=== PATIENT | male | born 2000 | race Caucasian/White ===

== ENCOUNTER 2020-05-11 00:22 | Observation (INO) ==
[2020-05-11 01:34] LABS: VBG HCO3 28 mEq/L (21-27); VBG PCO2 50 mmHg (41-51); VBG PH 7.35 pH Units (7.32-7.42); VBG PO2 41 mmHg (25-50)
[2020-05-11 01:36] LABS: Bacteria,Urine Few per hpf (None-Few); Bilirubin,Urine Negative (Negative); Blood,Urine Negative (Negative); Clarity,Urine Clear (Clear); Color,Urine Yellow (Yellow); Glucose,Urine (UA) Normal (Normal); Ketones,Urine Negative (Negative); Leukocyte Esterase,Urine Negative (Negative); Mucus,Urine Few per lpf (None-Few); Nitrite,Urine Negative (Negative); Protein,Urine 30 mg/dL (Neg-Trace); RBC,Urine 0-3 per hpf (0-3); Specific Gravity,Urine > 1.030 (1.010-1.025); WBC,Urine 0-3 per hpf (0-3)
[2020-05-11 01:40] LABS: Basophils % 0.4 %; Eosinophils # 0.1 K/mcL (0.0-0.6); Eosinophils % 0.7 %; Hematocrit 46.1 % (37.5-50.1); Hemoglobin 15.4 g/dL (12.9-16.9); Immature Granulocytes % 0.3 % (0-4); Lymphocytes # 1.9 K/mcL (0.6-4.6); Lymphocytes % 25.8 %; Mean Corpuscular HGB Conc 33.4 g/dL (31.6-35.5); Mean Corpuscular Hemoglobin 28.9 pg (28.0-33.3); Mean Corpuscular Volume 86.5 fL (83.0-100.0); Mean Platelet Volume 9.9 fL (9.4-12.4); Monocytes # 0.8 K/mcL (0.0-1.3); Monocytes % 11.4 %; Neutrophils # 4.5 K/mcL (1.6-8.9); Platelet Count 189 K/mcL (140-400); Red Blood Count 5.33 M/mcL (4.19-5.50); Red Cell Distribution Width 12.4 % (11.5-14.5); Segmented Neutrophils % 61.4 %; White Blood Count 7.3 K/mcL (4.3-11.1)
[2020-05-11] MEDS ORDERED: Metoclopramide 10 MG/2 ML VIAL IVP ONE (01:48)
[2020-05-11] MEDS ORDERED: Isovue-370 500 ML BOTTLE IVP ONE (01:48)
[2020-05-11] MEDS ORDERED: 0.9 % Sodium Chloride 1,000 ML IVC ONE (01:48)
[2020-05-11] MEDS ORDERED: Famotidine 20 MG/2 ML VIAL IVP ONE (01:50)
[2020-05-11 01:59] LABS: Alanine Aminotransferase 15 Units/L (7-52); Albumin 4.3 g/dL (3.5-5.7); Albumin/Globulin Ratio 1.3 (1.1-2.2); Alkaline Phosphatase 47 Units/L (34-104); Aspartate Amino Transferase 13 Units/L (13-39); BUN/Creatinine Ratio 14 (6-26); Bilirubin,Total 1.1 mg/dL (0.3-1.0); Blood Urea Nitrogen 16 mg/dL (6-20); Calcium 9.2 mg/dL (8.6-10.3); Carbon Dioxide 25 mEq/L (23-29); Chloride 102 mEq/L (98-107); Globulin 3.2 g/dL (2.4-3.5); Glucose 93 mg/dL (70-105); Osmolality,Calculated 289 (280-300); Potassium 3.6 mEq/L (3.5-5.1); Sodium 139 mEq/L (136-145); Total Protein 7.5 g/dL (6.4-8.9); Troponin I < 0.03 ng/mL (< 0.04); eGFR For African Americans > 60 (> 60); eGFR For Non-African Americans > 60 (> 60)
[2020-05-11 02:11] LABS: Bilirubin,Direct 0.3 mg/dL (0.0-0.2); Bilirubin,Indirect 0.8 mg/dL (0.0-1.0); Lipase 11 Units/L (11-82)
[2020-05-11 02:13] LABS: Thyroid Stimulating Hormone 3.601 mcIU/mL (0.340-5.600)
[2020-05-11 06:29] LABS: Adenovirus Not Detected (Not Detect); Coronavirus 229E Not Detected (Not Detect); Coronavirus HKU1 Not Detected (Not Detect); Coronavirus NL63 Not Detected (Not Detect); Coronavirus OC43 Not Detected (Not Detect)
[2020-05-11 06:30] LABS: Bordetella Pertussis Not Detected (Not Detect); Chlamydophila pneumoniae Not Detected (Not Detect); Human Metapneumovirus Not Detected (Not Detect); Human Rhinovirus/Enterovirus Not Detected (Not Detect); Influenza A Subtype 2009 H1 Not Detected (Not Detect); Influenza B Not Detected (Not Detect); Mycoplasma pneumoniae Not Detected (Not Detect); Parainfluenza Virus 1 Not Detected (Not Detect); Parainfluenza Virus 2 Not Detected (Not Detect); Parainfluenza Virus 3 Not Detected (Not Detect); Parainfluenza Virus 4 Not Detected (Not Detect); Respiratory Syncytial Virus Not Detected (Not Detect)
[2020-05-11] MEDS ORDERED: Naloxone 0.4 MG/ML INJ IVP PRN (08:02)
[2020-05-11] MEDS ORDERED: *HR* Promethazine 25 MG/ML VIAL IVP PRN (08:03)
[2020-05-11] MEDS: Ringers Solution, Lactated 1,000 ML IVC SCH ×2 (08:59→17:57)
[2020-05-11] MEDS: MetroNIDAZOLE 500 MG/100 ML 500 MG/100 ML BAG IVPB SCH (18:03)
[2020-05-11] MEDS: *HR* Heparin 5,000 UNIT/ML VIAL SQ SCH (18:04)
[2020-05-11] MEDS ORDERED: Acetaminophen IV 1,000 MG/100 ML INFUS..BTL IVPB ONE (23:23)
[2020-05-11] MEDS ORDERED: Ketorolac 15 MG/ML VIAL IVP PRN (23:24)
[2020-05-12] MEDS: MetroNIDAZOLE 500 MG/100 ML 500 MG/100 ML BAG IVPB SCH ×2 (00:05→07:25)
[2020-05-12 02:56] LABS: Basophils % 0.5 %; Eosinophils # 0.1 K/mcL (0.0-0.6); Eosinophils % 2.2 %; Hematocrit 41.1 % (37.5-50.1); Immature Granulocytes % 0.2 % (0-4); Lymphocytes # 1.9 K/mcL (0.6-4.6); Lymphocytes % 34.4 %; Mean Corpuscular HGB Conc 32.8 g/dL (31.6-35.5); Mean Corpuscular Hemoglobin 28.4 pg (28.0-33.3); Mean Corpuscular Volume 86.3 fL (83.0-100.0); Mean Platelet Volume 9.6 fL (9.4-12.4); Monocytes # 0.5 K/mcL (0.0-1.3); Monocytes % 9.3 %; Neutrophils # 2.9 K/mcL (1.6-8.9); Platelet Count 155 K/mcL (140-400); Red Blood Count 4.76 M/mcL (4.19-5.50); Red Cell Distribution Width 12.1 % (11.5-14.5); Segmented Neutrophils % 53.4 %; White Blood Count 5.5 K/mcL (4.3-11.1)
[2020-05-12 03:13] LABS: Hemoglobin 13.5 g/dL (12.9-16.9)
[2020-05-12 03:15] LABS: BUN/Creatinine Ratio 13 (6-26); Blood Urea Nitrogen 14 mg/dL (6-20); Calcium 8.6 mg/dL (8.6-10.3); Carbon Dioxide 26 mEq/L (23-29); Chloride 106 mEq/L (98-107); Glucose 90 mg/dL (70-105); Osmolality,Calculated 288 (280-300); Potassium 3.8 mEq/L (3.5-5.1); Sodium 139 mEq/L (136-145); eGFR For African Americans > 60 (> 60); eGFR For Non-African Americans > 60 (> 60)
[2020-05-12 03:23] LABS: Platelet Estimate Normal (Normal); Reactive Lymphocytes Present (Not Present)
[2020-05-12] MEDS: Ringers Solution, Lactated 1,000 ML IVC SCH (04:00)
[2020-05-12] MEDS: *HR* Heparin 5,000 UNIT/ML VIAL SQ SCH (06:07)
[2020-05-12 07:26] VITALS: BP 130/75
[2020-05-12 09:08] LABS: C-Reactive Protein 35 mg/L (Less than 10)
== END 2020-05-12 12:49 | disposition home or self-care (01) ==
LOC: 3BNU 00:22 → EMEROOARM 00:22 → SUATTDRO 06:44 → 3BNU 08:04
PROVIDERS: ADMIT Internal Medicine; ATTEND Internal Medicine